=== PATIENT | male | born 1945 | race Caucasian/White ===

== ENCOUNTER 2024-04-01 15:26 | Outpatient (CLI) | payer OTHER ==
[~2024-04-01 15:26] MED LIST: barium sulfate 340gm for oral suspension 1 BOTTLE SUSP.RECON PO ONE
== END 2024-04-01 23:59 | disposition home or self-care (01) ==
LOC: RAD 15:26
PROVIDERS: ATTEND Surgery
DX: K44.9 Diaphragmatic hernia without obstruction or gangrene (principal); K21.9 Gastro-esophageal reflux disease without esophagitis
CPT/HCPCS: 74220

== ENCOUNTER 2024-05-26 12:37 | Inpatient (IN) | payer OTHER ==
[2024-05-19 14:42] LABS: BASOPHILS % (AUTO) 0.3 % (0-1); EOSINOPHILS # (AUTO) 0.1 X10'3 (0-0.9); LYMPHOCYTES # (AUTO) 1.6 X10'3 (1.1-4.8); LYMPHOCYTES % (AUTO) 27.3 % (21-51); MEAN CORPUSCULAR HEMOGLOBIN 30.2 PG (27.0-31.0); MEAN CORPUSCULAR HGB CONC 33.3 g/dL (33.0-36.5); MEAN CORPUSCULAR VOLUME 90.6 FL (78-98); MEAN PLATELET VOLUME 8.7 FL (7.4-10.4); MONOCYTES # (AUTO) 0.3 X10'3 (0-0.9); MONOCYTES % (AUTO) 5.8 % (2-12); NEUTROPHILS # (AUTO) 3.9 X10'3 (1.8-7.7); NEUTROPHILS % (AUTO) 65.6 % (42-75); PRE OP HEMATOCRIT 37.8 % (42.0-52.0); PRE OP HEMOGLOBIN 12.6 g/dL (14.0-17.9); PRE OP PLATELET COUNT 228 X10'3 (140-440); RED BLOOD COUNT 4.17 X10'6 (4.70-6.10); RED CELL DISTRIBUTION WIDTH 16.1 % (11.5-14.5)
[2024-05-19 15:02] LABS: ALBUMIN 3.8 G/DL (3.4-5.0); ALKALINE PHOSPHATASE 76 IU/L (46-116); BLOOD UREA NITROGEN 20 MG/DL (7-18); BUN/CREATININE RATIO 15.4 (10.0-20.0); CALCIUM 8.2 MG/DL (8.5-10.1); CHLORIDE 99 MMOL/L (99-107); PRE OP ALT 15 U/L (30-65); PRE OP ANION GAP 13 (8-16); PRE OP AST 14 U/L (10-37); PRE OP BILIRUB, TOTAL 0.4 MG/DL (0.0-1.0); PRE OP GLUCOSE 137 MG/DL (70-104); PRE OP POTASSIUM 4.1 MMOL/L (3.4-5.1); PRE OP SODIUM 134 MMOL/L (135-145); TOTAL CARBON DIOXIDE 22.3 MMOL/L (24-32); TOTAL PROTEIN 7.5 G/DL (6.4-8.2); eGFR 53 ML/MIN
[2024-05-26] VITALS (27 sets, daily range): BP systolic 109–197; BP diastolic 45–108; PULSE 65–90; RESP 12–17; TEMP 97–97.7; O2SAT 92–98
[~2024-05-26] VITALS: Ht 180.3 cm; Wt 101.4 kg
[2024-05-26] MEDS: ceFAZolin 2gm in dextrose, iso 50 ML IV ONE (05:30)
[~2024-05-26 12:37] MED LIST changes: +ACET-2006 PO; +ASCO500C17 PO; +BISA-155 PO; +CALC500T11 PO; +CYAN-104 PO; +DOCU100C38 PO; +FERR-97 PO; +GUAI-692 PO; +IBUP-24 PO; +LOPE2TAB25 PO; +MAGN400O6 PO; +MENT7.6L8 PO; +NEOM1OIN19 TP; +OMEP40CA21 PO; +POLY510P31 PO; +RISP-31 PO; +TRAM50TA2 PO; -barium sulfate 340gm for oral suspension 1 BOTTLE SUSP.RECON PO ONE; +bismatrol PO
[2024-05-26] MEDS ORDERED: labetalol 20mg/4ml (5mg/ml) syringe IV PRN (13:20)
[2024-05-26] MEDS ORDERED: fentaNYL/PF 50MCG/1 ML 2ML syringe IV PRN (13:20)
[2024-05-26] MEDS ORDERED: morphine 2 MG/ML inj. syringe IV PRN (13:20)
[2024-05-26] MEDS: famotidine 20mg tablet PO ONE (13:33)
[2024-05-26] MEDS: ringers solution, lacted 1,000 ML IV SCH ×3 (13:35→18:05)
[2024-05-26] MEDS ORDERED: BUPIVAcaine/PF 2.5mg/ml (0.25%) 10ml vial ONE (14:32)
[2024-05-26] MEDS ORDERED: LIDOcaine 1% (10mg/ml)w/preservative inj. 20ml MDV ONE (14:32)
[2024-05-26] MEDS ORDERED: sevoflurane 250ml liquid IH ONE (14:58)
[2024-05-26] MEDS ORDERED: LIDOcaine 2% (20mg/ml) 5ml vial ONE (14:59)
[2024-05-26] MEDS ORDERED: rocuronium 10mg/ml inj IV ONE ×2 (14:59→16:27)
[2024-05-26] MEDS ORDERED: propofol inj 20 ML IV ONE (14:59)
[2024-05-26] MEDS ORDERED: fentaNYL/PF 50MCG/1 ML 2ML syringe ONE ×2 (14:59→16:27)
[2024-05-26] MEDS ORDERED: ondansetron/PF 4mg/2ml inj ONE (14:59)
[2024-05-26] MEDS ORDERED: midazolam 1 mg/ML 2ml injection ONE (14:59)
[2024-05-26] MEDS ORDERED: acetaminophen 1,000mg/100ml IV 100 ML IV ONE (15:00)
[2024-05-26] MEDS ORDERED: ePHEDrine 50MG/ML INJ. ONE (15:45)
[2024-05-26] MEDS: LIDOCAINE 1% w/preservative (10 MG/ML) inj. 10mL VIAL SQ ONE (15:46)
[2024-05-26] MEDS ORDERED: sugammadex 200mg/2ml injection IV ONE (16:27)
[2024-05-26] MEDS: hydrALAZINE 20mg/ml inj. IV PRN ×2 (17:44→22:11)
[2024-05-26] MEDS ORDERED: naloxone 0.4 mg/ml inj IV PRN (18:05)
[2024-05-26] MEDS ORDERED: ondansetron/PF 4mg/2ml inj IV PRN (18:05)
[2024-05-26] MEDS ORDERED: HYDROmorphone inj. 0.5 MG/0.5 ML DISP.SYRIN IV PRN (18:05)
[2024-05-26] MEDS ORDERED: bisacodyl 5mg tablet.DR PO PRN (18:10)
[2024-05-26] MEDS ORDERED: CALCIUM CARBONATE PO PRN (18:10)
[2024-05-26] MEDS: morphine 4 MG/ML inj SYRINge IV PRN (18:15)
[2024-05-26] MEDS: fentaNYL/PF 50MCG/1 ML 2ML syringe IV PRN (18:27)
[2024-05-26] MEDS: ondansetron/PF 4mg/2ml inj IV PRN (18:31)
[2024-05-26] MEDS: docusate sod 100mg capsule PO SCH (21:58)
[2024-05-26] MEDS: risperiDONE 0.5mg tablet PO SCH (21:58)
[2024-05-26] MEDS: heparin, porcine 5000 units/ml vial SQ SCH (22:04)
[2024-05-26] MEDS: HYDROmorphone 1 mg/ml syringe IV PRN (22:07)
[2024-05-27 02:00] VITALS: BP 141/69; RESP 16; TEMP 97; O2SAT 96
[2024-05-27 06:39] VITALS: BP 155/84; PULSE 71; RESP 16; TEMP 97.7; O2SAT 94
[2024-05-27] MEDS: risperiDONE 0.5mg tablet PO SCH (07:55)
[2024-05-27 10:00] VITALS: BP 136/70; PULSE 85; RESP 17; TEMP 97; O2SAT 97
[2024-05-27] MEDS ORDERED: traMADol 50MG tablet PO PRN (13:05)
== END 2024-05-27 14:05 | disposition home or self-care (01) | DRG 328 ==
LOC: PAS IN 12:37 → SUR 3N 19:35
PROVIDERS: ADMIT Surgery; ATTEND Surgery
PROC: 8E0W4CZ Robotic Assisted Procedure of Trunk Region, Percutaneous Endoscopic Approach (ICD-10-PCS; 2024-05-26)
PROC: 0DQ64ZZ Repair Stomach, Percutaneous Endoscopic Approach (ICD-10-PCS; 2024-05-26)
PROC: 0BUT4JZ Supplement Diaphragm with Synthetic Substitute, Percutaneous Endoscopic Approach (ICD-10-PCS; principal; 2024-05-26 14:58)
DX: K44.9 Diaphragmatic hernia without obstruction or gangrene (principal); I10 Essential (primary) hypertension; K59.00 Constipation, unspecified
CPT/HCPCS: 36415; 71045; 80053; 82948; 85025; 87081; 93005; A4615; A4618; C1781; G0378; J0131; J0360; J0690; J1100; J1171; J1644; J2003; J2250; J2270; J2405; J2704; J3010; J3490; J7120

== ENCOUNTER 2024-08-13 11:59 | Outpatient (CLI) | payer OTHER, MEDICARE ==
[2024-08-13] MEDS ORDERED: barium sulfate 340gm for oral suspension 1 BOTTLE SUSP.RECON PO ONE (15:00)
== END 2024-08-13 23:59 | disposition home or self-care (01) ==
LOC: RAD 11:59
PROVIDERS: ATTEND Nurse Practitioner Family
DX: Z01.89 Encounter for other specified special examinations (principal); K44.9 Diaphragmatic hernia without obstruction or gangrene; Z98.890 Other specified postprocedural states
CPT/HCPCS: 74220